=== PATIENT | male | born 1950 | race Caucasian/White ===

== ENCOUNTER 2022-07-29 10:05 | Outpatient (CLI) | payer MEDICARE, OTHER ==
[2022-07-29 15:16] LABS: BILIRUBIN,URINE NEGATIVE (NEGATIVE); GLUCOSE, URINE (UA) NEGATIVE (NEGATIVE); KETONES,URINE (UA) NEGATIVE (NEGATIVE); LEUKOCYTE ESTERASE, URINE MODERATE (NEGATIVE); NITRITE,URINE NEGATIVE (NEGATIVE); OCCULT BLOOD,URINE MODERATE (NEGATIVE); PROTEIN,URINE 30 mg/dL (NEGATIVE); UROBILINOGEN,URINE 0.2 (NORMAL) E.U./dL (NORMAL)
[2022-07-29 15:28] LABS: CLARITY,URINE CLOUDY (CLEAR)
[2022-07-29 15:51] LABS: BACTERIA,URINE Moderate /HPF (None Seen); SQUAMOUS EPITHELIAL CELL,UR RARE Squamous (<= Few); WBC,URINE >25 /HPF (0-3)
== END 2022-07-29 10:06 | disposition home or self-care (01) ==
LOC: LAB.S 10:05
PROVIDERS: ATTEND Internal Medicine
DX: R30.0 Dysuria (principal)
CPT/HCPCS: 81001; 87077; 87086; 87181

== ENCOUNTER 2022-08-27 08:14 | Outpatient (CLI) | payer MEDICARE, OTHER ==
[2022-08-27 21:00] LABS: ESTIMATED AVERAGE GLUCOSE 151 mg/dL (70-100); HEMOGLOBIN A1c% 6.9 % (4.27-6.07)
== END 2022-08-27 08:15 | disposition home or self-care (01) ==
LOC: LAB.S 08:14
PROVIDERS: ATTEND Internal Medicine
DX: E11.9 Type 2 diabetes mellitus without complications (principal)
CPT/HCPCS: 36415; 83036

== ENCOUNTER 2022-10-19 18:33 | Emergency (ER) | payer MEDICARE, OTHER ==
[2022-10-19 18:49] VITALS: BP 139/84
--- NOTE | 2022-10-19 20:05 | ED Physician Documentation ---
History of Present Illness - Stated complaint Stated Complaint: L ELBOW SWOLLEN - Chief complaint Chief Complaint: Ext Problem - History obtained from History obtained from: Patient - History of Present Illness Timing: Today Pain level max: 6 Pain level now: 5 - Additonal information Additional information: 72-year-old male presents to the emergency department with swelling to the proximal left ulna. States he recently went on a fishing trip. Noted redness and swelling to the area. Worse with movement, better with rest. No fevers. No chills. Does have a history of gout. Has not taken anything for this. Review of Systems Constitutional: denies: Fever, Chills GI: denies: Vomiting PD PAST MEDICAL HISTORY - Past Medical History Past Medical History: Yes Other Past Medical History: gout - Present Medications Home Medications: Ambulatory Orders Medication Instructions Recorded Confirmed predniSONE [Deltasone] 40 mg PO DAILY #10 tablet 10/19/22 - Allergies Allergies/Adverse Reactions: Allergies Allergy/AdvReac Type Severity Reaction Status Date / Time No Known Drug Allergies Allergy Verified 10/19/22 18:38 - Living Situation Living Situation: reports: With family Living Arrangement: reports: At home - Social History Does the pt smoke?: No Does the pt have substance abuse?: No - Family History Family history: reports: Non contributory PD ED PE NORMAL - Vitals Vital signs reviewed: Yes - General General: Alert and oriented X 3, No acute distress - HEENT HEENT: Moist mucous membranes - Neck Neck: Supple, no meningeal sign - Derm Derm: Warm and dry - Extremities Extremities: Other (L arm - Mild erythema over the olecranon bursa. Mild swelling. Mild warmth. Has about 90% of the full range of motion of his left elbow without pain. Neurovascular intact.) - Neuro Neuro: Alert and oriented X 3 Results - Vitals Vitals: Vital Signs - 24 hr 10/19/22 18:38 Temperature 36.5 C Heart Rate 90 Respiratory 16 Rate Blood Pressure 139/84 H O2 Saturation 100 Oxygen O2 Source Room air - Rads (name of study) L elbow xray Relevant Findings:: Final report received, See rad report PD Medical Decision Making - ED course Complexity details: reviewed results, considered differential, d/w patient ED course: 72-year-old male with olecranon bursitis. No evidence of septic joint. No indication for drainage. Will place on prednisone. Likely overuse from his recent fishing trip. No trauma. No fractures. Patient counseled regarding signs and symptoms for which I believe and urgent re-evaluation would be necessary. Patient with good understanding of and agreement to plan and is comfortable going home at this time This document was made in part using voice recognition software. While efforts are made to proofread this document, sound alike and grammatical errors may occur. Departure - Departure Disposition: Home, Self Care Clinical Impression: Olecranon bursitis of left elbow Condition: Good Instructions: ED Bursitis Elbow Olecranon Follow-Up: Eboni Can MD [Primary Care Provider] - Within 1 week Prescriptions: predniSONE [Deltasone] 40 mg PO DAILY #10 tablet Comments: Your prescription was sent to [facility] in [place]. You can use Motrin or Aleve at home as well. Please follow-up with your doctor for further care. Continue to move the elbow gently. This is a olecranon bursitis, this is typically an overuse injury. Please return if you worsen. Forms: PCP List Discharge Date/Time: 10/19/22 20:24
[2022-10-19] MEDS ORDERED: predniSONE 20 MG TABLET PO STA (20:12)
--- NOTE | 2022-10-19 21:58 | XRAY Report ---
PROCEDURE: Elbow 3 View LT INDICATIONS: swelling TECHNIQUE: 3 views of the elbow were acquired. COMPARISON: None. FINDINGS: Bones: No fractures or dislocations. No suspicious bony lesions. Soft tissues: No effusion. No suspicious soft tissue calcifications or masses. IMPRESSION: 1. No fracture or dislocation. Reviewed by: Victor Hugo Ziegler MD on 10/19/2022 9:57 PM PDT Approved by: Victor Hugo Ziegler MD on 10/19/2022 9:57 PM PDT Station ID: [id number]
== END 2022-10-19 20:24 | disposition home or self-care (01) ==
LOC: ED 18:33
DX: M70.22 Olecranon bursitis, left elbow (principal); Y93.89 Activity, other specified
CPT/HCPCS: 73080; 99283; J7512

== ENCOUNTER 2023-08-22 12:11 | Outpatient (CLI) | payer MEDICARE, OTHER | END 2023-08-22 23:59 | disposition short-term general hospital (02) | LOC: EMS 12:11 | DX: R07.89 Other chest pain (principal); R42 Dizziness and giddiness; M79.602 Pain in left arm; I48.91 Unspecified atrial fibrillation; I10 Essential (primary) hypertension | CPT/HCPCS: A0425; A0429 ==